=== PATIENT | male | born 1975 | race Caucasian/White ===

== ENCOUNTER 2017-11-04 07:43 | Emergency (ER) | payer OTHER ==
[~2017-11-04] VITALS: Ht 182.9 cm; Wt 81.7 kg
[2017-11-04] MEDS ORDERED: DOXYCYCLINE HY100 MG PO (10:33)
--- NOTE | 2017-11-07 06:57 | NUR ---
CHW has called patient several times and left a voicemai. Waiting on a return call.
--- NOTE | 2017-11-07 08:19 | NUR ---
CHW called patient several times in regards to ED Physician referral for patient. Patient has not called CHW back. CHW will call PCP office to notify PCP of patient request in the ED.
== END 2017-11-04 10:48 | disposition home or self-care (01) ==
LOC: ED 07:43
DX: N45.1 Epididymitis (principal); N50.819 Testicular pain, unspecified; Z87.891 Personal history of nicotine dependence
CPT/HCPCS: 74177; 80053; 81001; 85025; 96374; 99284; J1885; Q9967

== ENCOUNTER 2024-06-14 23:39 | Emergency (ER) | payer OTHER ==
[~2024-06-14] VITALS: Ht 182.9 cm; Wt 89.4 kg
[~2024-06-14 23:39] MED LIST: DOXYCYCLINE HY100 MG PO
[2024-06-14] MEDS ORDERED: methylPREDNISolone 4 MG HOME.PACK PO ONE (23:45)
[2024-06-14 23:58] VITALS: BP 160/103
== END 2024-06-14 23:58 | disposition home or self-care (01) ==
LOC: ED 23:39
DX: H69.83 Other specified disorders of Eustachian tube, bilateral (principal); Z87.891 Personal history of nicotine dependence
CPT/HCPCS: 99282

== ENCOUNTER 2024-08-19 06:01 | Day surgery (SDC) | payer OTHER ==
[2024-08-14 15:24] VITALS: BP 154/89
[~2024-08-19] VITALS: Ht 182.9 cm; Wt 86.4 kg
[~2024-08-19 06:01] MED LIST changes: +DAILY VALUE1 EACH PO; +LACTATED RINGER'S 1,000 ML IV SCH
[2024-08-19 06:11] VITALS: BP 156/93
[2024-08-19] MEDS ORDERED: IBLOOD GLUCOSE TEST STRIP 1 EA TEST VI PRN (07:00)
[2024-08-19] MEDS ORDERED: LIDOCAINE HCL 1% 5 ML SDV INJ ONE (07:00)
[2024-08-19] MEDS ORDERED: LIDOCAINE HCL 2% 5 ML SDV ONE (07:14)
[2024-08-19] MEDS ORDERED: propofoL 200 MG/20 ML VIAL ONE ×2 (07:14→07:48)
[2024-08-19] MEDS ORDERED: ACETAMINOPHEN 1,000 MG/100 ML VIAL IV ONE (07:15)
[2024-08-19] MEDS ORDERED: fentaNYL citrate 100 MCG/2 ML VIAL ONE (07:51)
[2024-08-19 08:46] VITALS: BP 158/107
--- NOTE | 2024-08-21 07:57 | OR ---
[facility] [address], [place] [address] Signed DATE OF OPERATION: 08/19/2024 SURGEON: Fabien Bhatti MD PREOPERATIVE DIAGNOSES: 1. Colon screening. 2. Persistent daily alcohol use. POSTOPERATIVE DIAGNOSES: 1. Polyps x2. 2. Internal hemorrhoids. 3. Hypertrophied anal papilla. PROCEDURE: Total colonoscopy to cecum with cold morcellation polypectomy x2. ANESTHESIA: Intravenous sedation; propofol, Lenard Alberto CRNA INDICATION: This 49-year-old white man is a patient of MELVINA Cobos and is referred for colon screening. He has no symptoms of bleeding, diarrhea, or constipation and no family history of colon cancer. The patient does drink at least 3 alcoholic drinks a night, possibly more. On that basis, propofol sedation is most appropriate for him. The risk of bleeding, infection, and perforation related to colonoscopy were reviewed with him. He understands and wished to proceed. FINDINGS: Indeed, he did require considerable amounts of propofol for adequate sedation. Procedure was accomplished without discomfort, however. The colon was well prepped. There were two very small polyps, one in the left colon and the other in the sigmoid, both excised with cold morcellation technique. Retroflexed view confirmed internal hemorrhoids and hypertrophied anal papilla. DESCRIPTION OF PROCEDURE: The patient was brought to the endoscopy suite and placed in the lateral decubitus position, given intravenous sedation with propofol infusional sedation technique. Digital rectal examination was normal including a normal prostate. The Olympus video colonoscope was passed in the rectum and manipulated throughout the colon ultimately intubating the cecum itself. The ileocecal valve and appendiceal orifice were normal. Electronically Signed By: FABIEN BHATTI MD 08/21/24 0757 PATIENT NAME: WALTER LANIER OPERATIVE REPORT DATE OF : 79 REPORT #: [id number] PHYSICIAN: FABIEN BHATTI MD PCP: CATIE HERNANDEZ REPORT IS CONFIDENTIAL AND NOT TO BE RELEASED WITHOUT AUTHORIZATION [facility] [address], [place] [address] Signed The scope was withdrawn from that point and examination throughout showed no sign of abnormality until the proximal descending colon where a very small polyp was noted, this was excised with cold morcellation technique. Further withdrawal showed a somewhat larger polyp but certainly no more than 5 mm in size. This was excised with morcellation technique as well. Further withdrawal allowed for retroflexed view of the rectum which showed internal hemorrhoidal changes and hypertrophied anal papilla. The scope was straightened, withdrawn and removed. The patient was taken to the recovery room in good condition. CONCLUDING DIAGNOSIS: Polyps x2, internal hemorrhoids and anal papilla. PLAN: Would recommend repeat colonoscopy in 7 to 10 years based on current recommendations, sooner if symptoms should develop. He will return to the ongoing care of Catie Hernandez. MD PRESLEY Rincon/RAMILA /[id number] cc: MELVINA Cobos Copies: CATIE HERNANDEZ ~ Electronically Signed By: FABIEN BHATTI MD 08/21/24 0757 PATIENT NAME: YOLANDEWALTER CARMEN OPERATIVE REPORT DATE OF : 79 REPORT #: [id number] PHYSICIAN: FABIEN BHATTI MD PCP: CATIE HERNANDEZ REPORT IS CONFIDENTIAL AND NOT TO BE RELEASED WITHOUT AUTHORIZATION
--- NOTE | 2024-08-22 14:48 | PATH ---
[facility] [address] [facility] [place] [address] Signed SPECIMEN(S): A DESCENDING COLON POLYP SPECIMEN(S): B SIGMOID POLYP SPECIMEN SOURCE: A. DESCENDING COLON POLYP B. SIGMOID POLYP CLINICAL HISTORY: Postop: Internal hemorrhoid polyps x 2 FINAL PATHOLOGIC DIAGNOSIS: A. Descending colon polyp: - Tubular adenoma (one fragment). B. Sigmoid polyp: - Hyperplastic polyp (two fragments). JVR:[facility] MICROSCOPIC EXAMINATION: Histologic sections of all submitted blocks are examined by light microscopy. These findings, together with the gross examination, support the pathologic diagnosis. GROSS DESCRIPTION: A. The specimen, labeled and designated "Yumiko Pappas, descending colon polyp," is received in formalin and consists of three [place] soft tissue fragments, ranging from 0.1-0.4 cm. Entirely submitted in (A1). B. The specimen, labeled and designated "Yumiko Pappas, sigmoid polyp," is received in formalin and consists of two [place] soft tissue fragments, ranging from 0.2-0.3 cm. Entirely submitted in (B1). AB (under the direct supervision of a pathologist) The Gross Description was prepared using a voice recognition system. The report was reviewed for accuracy; however, sound-alike word errors, addition and/or deletions may occur. If there is any question about this report, please contact Client Services. PERFORMING LABORATORY: Technical component was performed by [employer], [address] [place] [id number] (CLIA# [id number]). Professional interpretation was performed by [facility], [address] [place] [id number] (CLIA#: [id number]). PATIENT NAME: WALTER PAPPAS PATHOLOGY DATE OF : 79 REPORT #: [id number] PHYSICIAN: [facility] PCP: CATIE MARIA REPORT IS CONFIDENTIAL AND NOT TO BE RELEASED WITHOUT AUTHORIZATION [address] [place], [place] [address] Signed Diagnostician: Ovidio Corral MD Pathologist Electronically Signed 08/22/2024 Copies: ~ PATIENT NAME: WALTER PAPPAS PATHOLOGY DATE OF : 79 REPORT #: [id number] PHYSICIAN: [facility] PCP: CATIE MARIA REPORT IS CONFIDENTIAL AND NOT TO BE RELEASED WITHOUT AUTHORIZATION
== END 2024-08-19 08:52 | disposition home or self-care (01) ==
LOC: DS 06:01
PROVIDERS: ATTEND Surgery
PROC: 0DBN8ZZ Excision of Sigmoid Colon, Via Natural or Artificial Opening Endoscopic (ICD-10-PCS; 2024-08-19)
PROC: 0DBG8ZZ Excision of Left Large Intestine, Via Natural or Artificial Opening Endoscopic (ICD-10-PCS; principal; 2024-08-19 07:30)
DX: Z12.11 Encounter for screening for malignant neoplasm of colon (principal); D12.4 Benign neoplasm of descending colon; K64.8 Other hemorrhoids; K62.89 Other specified diseases of anus and rectum; K63.5 Polyp of colon; F10.90 Alcohol use, unspecified, uncomplicated
CPT/HCPCS: 00811; J0131; J2003; J2704; J3010; J7121